=== PATIENT | female | born 1990 ===

== ENCOUNTER 2022-01-12 09:49 | Outpatient (CLI) | payer OTHER | END 2022-01-12 11:30 | disposition home or self-care (01) | LOC: PRENATAL 09:49 | PROVIDERS: ATTEND Obstetrics & Gynecology Maternal & Fetal Medicine | DX: O28.1 Abnormal biochemical finding on antenatal screening of mother (principal); Z36.0 Encounter for antenatal screening for chromosomal anomalies; O34.219 Maternal care for unspecified type scar from previous cesarean delivery ==

== ENCOUNTER 2022-01-26 10:55 | Outpatient (CLI) | payer OTHER | END 2022-01-26 12:20 | disposition home or self-care (01) | LOC: PRENATAL 10:55 | PROVIDERS: ATTEND Obstetrics & Gynecology Maternal & Fetal Medicine | DX: O35.0XX0 Maternal care for (suspected) central nervous system malformation in fetus, not applicable or unspecified (principal); O35.3XX0 Maternal care for (suspected) damage to fetus from viral disease in mother, not applicable or unspecified; O28.1 Abnormal biochemical finding on antenatal screening of mother ==

== ENCOUNTER 2022-06-04 10:45 | Inpatient (IN) | payer OTHER ==
[~2022-06-04] VITALS: Ht 147.3 cm; Wt 3.6 kg
[2022-06-04] MEDS ORDERED: PRENA PO (12:38)
[2022-06-04] MEDS ORDERED: FOLIC ACID0.8 M1 PO (12:38)
[2022-06-06] MEDS ORDERED: PRENATAL + DHA1 EAC1 PO (13:05)
[2022-06-09] MEDS ORDERED: IBUPROFEN800 MG PO (10:15)
== END 2022-06-09 12:22 | disposition home or self-care (01) | DRG 788 ==
LOC: O/R 06-06 08:48 → OB/GYN 06-06 10:45
PROVIDERS: ADMIT Obstetrics & Gynecology; ATTEND Obstetrics & Gynecology
PROC: 4A1HXCZ Monitoring of Products of Conception, Cardiac Rate, External Approach (ICD-10-PCS; 2022-06-06)
PROC: 10D00Z1 Extraction of Products of Conception, Low, Open Approach (ICD-10-PCS; principal; 2022-06-06 12:00)
DX: O34.211 Maternal care for low transverse scar from previous cesarean delivery (principal); Z3A.39 39 weeks gestation of pregnancy; Z37.0 Single live birth; Z20.822 Contact with and (suspected) exposure to COVID-19